=== PATIENT | male | born 1935 | race Caucasian/White ===

== ENCOUNTER 2016-09-17 21:17 | Emergency (ER) | payer MEDICARE ==
[~2016-09-17] VITALS: Ht 185.4 cm; Wt 81.6 kg
[2016-09-17 21:17] VITALS: BP_SYST 128
--- NOTE | 2016-09-17 21:17 | NUR ---
Placed in room 1. 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 To gown for exam. Side rails up. Report given to Baylee JULIAN.
--- NOTE | 2016-09-17 21:23 | NUR ---
ER [facility] at bedside evaluating the patient
[2016-09-17] MEDS ORDERED: NACL 0.9% 1,000 ML IV ONE (21:29)
--- NOTE | 2016-09-17 21:30 | NUR ---
Pt brought in to ED by ambulance from board and care with complaint of ALOC. Pt does not respond to verbal stimuli. No acute distress noted. Will continue to monitor.
--- NOTE | 2016-09-17 21:35 | NUR ---
# 22 gauge angiocath placed to LFA. Use of asceptic technique. Opsite placed over site. Blood return noted. Blood for lab drawn from site. Flushed with 10 cc of normal saline. No evidence of infiltration noted. Patient tolerated well.
[2016-09-17 22:09] LABS: BASOPHILS % (AUTO) 0.4 % (0.0-2.0); EOSINOPHILS # (AUTO) 0.4 K/uL (0.0-0.4); EOSINOPHILS % (AUTO) 5.3 % (0.0-4.0); HEMATOCRIT 40.5 % (36-54); HEMOGLOBIN 13.5 g/dL (14.0-18.0); LYMPHOCYTES # (AUTO) 1.9 K/uL (1.0-5.5); LYMPHOCYTES % (AUTO) 23.9 % (20.5-51.5); MEAN CORPUSCULAR HEMOGLOBIN 31 pg (27-31); MEAN CORPUSCULAR HGB CONC 33 % (32-36); MEAN CORPUSCULAR VOLUME 92 fL (79.0-98.0); MONOCYTES # (AUTO) 0.5 K/uL (0.0-1.0); MONOCYTES % (AUTO) 5.9 % (1.7-9.3); NEUTROPHILS # (AUTO) 5.3 K/uL (1.8-7.7); NEUTROPHILS % (AUTO) 64.5 % (40.0-70.0); PLATELET COUNT (AUTO) 190 K/uL (130-430); RED CELL DISTRIBUTION WIDTH 14.8 % (9.0-15.0); WHITE BLOOD COUNT (AUTO) 8.1 K/uL (4.8-10.8)
[2016-09-17 22:17] LABS: ANION GAP 5 (5-15); CALCIUM 8.9 mg/dL (8.4-11.0); CHLORIDE 109 mmol/L (98-107); CREATININE 0.94 mg/dL (0.55-1.30); GLUCOSE 143 mg/dL (70-99); POTASSIUM 4.2 mmol/L (3.5-5.1); SODIUM SERUM 139 mmol/L (136-145); UREA NITROGEN, BLOOD 19 mg/dL (8-21)
[2016-09-17 22:21] LABS: ALANINE AMINOTRANSFERASE 28 U/L (12-78); ALBUMIN 2.7 g/dL (3.4-4.8); ASPARTATE AMINOTRANSFERASE 29 U/L (10-37); CREATINE KINASE, TOTAL 36 U/L (39-308); TOTAL BILIRUBIN 1.3 mg/dL (0.0-1.0); TOTAL PROTEIN, SERUM 6.1 g/dL (6.4-8.3)
[2016-09-17 22:23] LABS: ALCOHOL, BLOOD < 3 mg/dL (<10); SALICYLATE < 1 mg/dL (3-30)
[2016-09-17 22:30] LABS: INR 1.1 (0.80-1.20); PROTHROMBIN TIME 12.2 SECS (9.5-12.5)
[2016-09-17 22:39] LABS: ACETAMINOPHEN 6 ug/mL (1-30)
--- NOTE | 2016-09-17 22:40 | NUR ---
at bedside. Pt resting comfortably.
[2016-09-17 22:46] LABS: BILIRUBIN,URINE NEGATIVE (NEGATIVE); BLOOD, URINE NEGATIVE (NEGATIVE); CLARITY/URINE CLEAR (CLEAR); COLOR,URINE AMBER (YELLOW); GLUCOSE,URINE NEGATIVE (NEGATIVE); KETONES,URINE NEGATIVE (NEGATIVE); LEUKOCYTE ESTERASE ,URINE NEGATIVE (NEGATIVE); NITRITE, URINE NEGATIVE (NEGATIVE); PH,URINE 5.5 (5.0-8.0); PROTEIN URINE 2+ (NEGATIVE)
[2016-09-17 22:47] LABS: UROBILINOGEN,URINE >=8 (0.2-1.0)
[2016-09-17 22:58] LABS: BACTERIA,URINE FEW /HPF (None Seen); RBC,URINE 0-3 /HPF (0-3)
[2016-09-17 22:59] LABS: FINE GRANULAR CASTS,URINE 0-3 /LPF (None Seen); HYALINE CASTS, URINE 0-3 /LPF (None Seen); MUCUS,URINE 1+ /LPF (None Seen)
[2016-09-17 23:05] LABS: BARBITURATE, URINE NEGATIVE (NEG <=200); BENZODIAZEPINE, URINE NEGATIVE (NEG <=150); CANNABINOID, URINE NEGATIVE (NEG <=50); COCAINE, URINE NEGATIVE (NEG <=150); METHAMPHETAMINES SCREEN,URINE NEGATIVE (NEG <=500); OPIATE, URINE NEGATIVE (NEG <=100); PHENCYCLIDINE SCREEN,URINE NEGATIVE (NEG <=25); UR TRICYCLIC ANTIDEPRESSANTS NEGATIVE (NEG <=300); URINE AMPHETAMINE NEGATIVE (NEG <=500); URINE METHADONE NEGATIVE (NEG <=200); URINE OXYCODONE SCREEN NEGATIVE (NEG <=100); URINE PROPOXYPHENE SCREEN NEGATIVE (NEG <=300)
--- NOTE | 2016-09-17 23:50 | NUR ---
continues at bedside. states that the pt has declined in health status and pt has history of dementia. Resident is alert and able to follow verbal command.
--- NOTE | 2016-09-18 00:30 | NUR ---
Patient care endorsed to me. Patient calm on gurney, spouse at bedside, responds to painful stimuli, opens and tracks with eyes. VS WNL, no signs of acute distress.
--- NOTE | 2016-09-18 00:36 | NUR ---
ELIESER RENE [facility] aware of BP.
--- NOTE | 2016-09-18 00:44 | NUR ---
Patient does not meet SEPSIS protocol.
[2016-09-18] MEDS ORDERED: LOSARTAN POTASSIUM 25 MG TABLET PO ONE (00:45)
[2016-09-18] MEDS ORDERED: CARVEDILOL 6.25 MG TABLET (COREG) PO ONE (00:45)
--- NOTE | 2016-09-18 00:50 | NUR ---
Patient switched to nasal cannula 2L. Oxigenating 92-94%. MD aware.
[2016-09-18] MEDS ORDERED: LOSARTAN POTASSIUM 25 MG TABLET ONE (01:14)
--- NOTE | 2016-09-18 01:50 | NUR ---
Patient asleep on gurney, no signs of acute distress. Spouse at bedside.
--- NOTE | 2016-09-18 02:10 | NUR ---
Patient is more alert, answers questions with yes/no. Denies pain.
--- NOTE | 2016-09-18 03:10 | NUR ---
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
[2016-09-18 03:15] VITALS: BP_SYST 139
--- NOTE | 2016-09-18 03:15 | NUR ---
Patient to be transferred to [facility]. Is being transferred due to higher level of care. Receiving facility has accepting physician and available space. [facility] physician has signed transfer form. Patient or responsible libertarian has agreed to transfer and signed form. Patient belongings inventoried and will be sent with patient. Copy of nursing notes, lab reports, EKG, Physicians Orders and X-rays to be sent with patient. Report called to Natalie JULIAN at receiving facility. Receiving physician is [facility] here picking up patient for transport.
== END 2016-09-18 03:15 | disposition short-term general hospital (02) ==
LOC: SED 21:17
DX: R41.82 Altered mental status, unspecified (principal); F03.90 Unspecified dementia, unspecified severity, without behavioral disturbance, psychotic disturbance, mood disturbance, and anxiety; I10 Essential (primary) hypertension; R79.89 Other specified abnormal findings of blood chemistry; Z95.1 Presence of aortocoronary bypass graft
CPT/HCPCS: 36415; 70450; 71010; 80053; 80307; 81000; 82550; 82962; 84484; 85025; 85610; 85730; 93005; 96360; 99285; G0480; G0481; G0482; J7030